=== PATIENT | female | born 1995 | race African-American/Black ===

== ENCOUNTER 2017-05-13 15:39 | Emergency (ER) | payer OTHER, MEDICAID ==
[~2017-05-13] VITALS: Ht 172.7 cm; Wt 122.5 kg
[~2017-05-13 15:39] MED LIST: ACETAMINOPHEN-1 EAC1 PO; CIPRO500 MG PO; FLAGYL500 MG PO; MACROBID 100 M100 M1 PO; MACROBID 100 M100 M2 PO; NOHOMEMEDICATIONS; ONDANSETRON HCL4 M2 PO; PYRIDIUM100 M1 PO; TRINATE TABLET1 TAB PO
[2017-05-13] MEDS ORDERED: IBUPROFEN 800800 M1 PO (17:05)
[2017-05-13 17:26] VITALS: BP 124/68
== END 2017-05-13 17:27 | disposition home or self-care (01) ==
LOC: M.ERS 15:39
DX: M25.562 Pain in left knee (principal)

== ENCOUNTER 2017-09-12 14:05 | Emergency (ER) | payer OTHER, MEDICAID ==
[~2017-09-12] VITALS: Ht 172.7 cm; Wt 90.7 kg
[~2017-09-12 14:05] MED LIST changes: +IBUPROFEN 800800 M1 PO
[2017-09-12 14:13] VITALS: BP 125/73
[2017-09-12 14:30] LABS: URINE BILIRUBIN NEGATIVE (Negative); URINE BLOOD TRACE (Negative); URINE CLARITY CLEAR; URINE COLOR YELLOW; URINE GLUCOSE-RANDOM NEGATIVE (Negative); URINE KETONES NEGATIVE (Negative); URINE LEUKOCYTES-REFLEX NEGATIVE (Negative); URINE NITRITE-REFLEX NEGATIVE (Negative); URINE PROTEIN TRACE (Negative); URINE SPECIFIC GRAVITY 1.025 (1.005-1.030); URINE UROBILINOGEN 0.2 E.U./dl (0.2-1.0)
[2017-09-12] MEDS ORDERED: MACROBID 100 M100 M3 PO (14:49)
[2017-09-12] MEDS ORDERED: KEFLEX500 M1 PO (14:49)
== END 2017-09-12 14:54 | disposition home or self-care (01) ==
LOC: M.ERS 14:05
PROVIDERS: Physician Assistant Surgical
DX: S91.112A Laceration without foreign body of left great toe without damage to nail, initial encounter (principal); S91.115A Laceration without foreign body of left lesser toe(s) without damage to nail, initial encounter; R30.0 Dysuria; X58.XXXA Exposure to other specified factors, initial encounter; Y93.89 Activity, other specified; Y92.89 Other specified places as the place of occurrence of the external cause; Y99.8 Other external cause status

== ENCOUNTER 2017-11-06 20:39 | Emergency (ER) | payer OTHER, MEDICAID ==
[~2017-11-06] VITALS: Ht 172.7 cm; Wt 122.5 kg
[~2017-11-06 20:39] MED LIST changes: +KEFLEX500 M1 PO; +MACROBID 100 M100 M3 PO
[2017-11-06 22:14] VITALS: BP 109/60
== END 2017-11-06 22:16 | disposition home or self-care (01) ==
LOC: M.ERS 20:39
DX: T78.1XXA Other adverse food reactions, not elsewhere classified, initial encounter (principal); Z88.8 Allergy status to other drugs, medicaments and biological substances; X58.XXXA Exposure to other specified factors, initial encounter

== ENCOUNTER 2017-11-18 15:36 | Emergency (ER) | payer OTHER, MEDICAID ==
[~2017-11-18] VITALS: Ht 172.7 cm; Wt 124.7 kg
[2017-11-18 15:51] LABS: URINE BILIRUBIN NEGATIVE (Negative); URINE BLOOD 1+ (Negative); URINE COLOR YELLOW; URINE GLUCOSE-RANDOM NEGATIVE (Negative); URINE KETONES NEGATIVE (Negative); URINE NITRITE-REFLEX NEGATIVE (Negative); URINE PROTEIN 1+ (Negative); URINE SPECIFIC GRAVITY 1.025 (1.005-1.030); URINE UROBILINOGEN 0.2 E.U./dl (0.2-1.0)
[2017-11-18 15:54] LABS: URINE CLARITY HAZY; URINE LEUKOCYTES-REFLEX 2+ (Negative)
[2017-11-18 16:02] LABS: SQUAMOUS >10 Many /LPF (0-3)
[2017-11-18 16:03] LABS: BACTERIA-REFLEX >30 Many /HPF (None Seen); CASTS None Seen /LPF (None Seen); CRYSTALS None Seen /LPF (None Seen); URINE RBC 3-10 Few /HPF (0-2); URINE WBC-REFLEX 6-15 Few /HPF (0-5)
[2017-11-18] MEDS ORDERED: MEDROLDOSEPACK PO (16:31)
[2017-11-18 16:39] VITALS: BP 115/71
== END 2017-11-18 16:40 | disposition home or self-care (01) ==
LOC: M.ERS 15:36
PROVIDERS: Nurse Practitioner Family
DX: N72 Inflammatory disease of cervix uteri (principal); L25.9 Unspecified contact dermatitis, unspecified cause; B00.9 Herpesviral infection, unspecified; Z88.8 Allergy status to other drugs, medicaments and biological substances

== ENCOUNTER 2017-11-18 16:55 | Emergency (ER) | payer OTHER, MEDICAID ==
[~2017-11-18] VITALS: Ht 172.7 cm; Wt 124.7 kg
[~2017-11-18 16:55] MED LIST changes: +MEDROLDOSEPACK PO
[2017-11-18 17:08] VITALS: BP 124/84
== END 2017-11-18 17:14 | disposition home or self-care (01) ==
LOC: M.ERS 16:55
DX: B00.9 Herpesviral infection, unspecified (principal); Z88.8 Allergy status to other drugs, medicaments and biological substances

== ENCOUNTER 2018-07-03 13:39 | Emergency (ER) | payer OTHER, MEDICAID ==
[~2018-07-03] VITALS: Ht 172.7 cm; Wt 127.0 kg
[2018-07-03] MEDS ORDERED: SITAVIG50 MG PO (14:14)
[2018-07-03] MEDS ORDERED: TYLENOL325 MG PO (14:14)
[2018-07-03 15:16] VITALS: BP 129/82
[2018-07-03 15:17] LABS: INFLUENZA A ANTIGEN None Detected (None Detect); INFLUENZA B ANTIGEN None Detected (None Detect)
== END 2018-07-03 15:17 | disposition home or self-care (01) ==
LOC: M.ERS 13:39
PROVIDERS: Nurse Practitioner Family
DX: J02.0 Streptococcal pharyngitis (principal); Z88.6 Allergy status to analgesic agent

== ENCOUNTER 2018-09-19 06:59 | Emergency (ER) | payer OTHER, MEDICAID ==
[~2018-09-19] VITALS: Ht 172.7 cm; Wt 129.3 kg
[~2018-09-19 06:59] MED LIST changes: +SITAVIG50 MG PO; +TYLENOL325 MG PO
[2018-09-19 07:51] LABS: ABSOLUTE EOSINOPHILS 0.1 thou/uL (0.0-0.7); ABSOLUTE LYMPHOCYTES 1.7 thou/uL (0.8-5.3); ABSOLUTE MONOCYTES 0.9 thou/uL (0.0-1.2); ABSOLUTE NEUTROPHILS 5.7 thou/uL (1.6-8.1); BASOPHILS 0.5 %; EOSINOPHILS 1.6 %; HEMATOCRIT 38.9 % (37.0-47.0); HEMOGLOBIN 13.1 gm/dL (12.0-15.0); LYMPHOCYTES 20.6 %; MCH 30.1 pg (26.0-34.0); MCHC 33.7 g/dL (28.0-37.0); MCV 89.3 fL (80.0-100.0); MONOCYTES 10.7 %; MPV 8.5 fl. (7.2-11.1); NUCLEATED RBCS 0 /100WBC; PLATELET COUNT* 315 thou/uL (150-400); POLYS 66.6 %; RBC 4.36 mil/uL (4.20-5.00); RDW-CV 13.2 % (10.5-14.5); WBC 8.5 thou/uL (4.0-11.0)
[2018-09-19 08:03] LABS: CALCIUM 8.6 mg/dL (8.5-10.1); CREATININE 0.9 mg/dL (0.6-1.3)
[2018-09-19 08:07] LABS: ALBUMIN 3.1 g/dL (3.4-5.0); TOTAL BILIRUBIN 0.2 mg/dL (<0.1-1.0); TOTAL PROTEIN 7.5 g/dL (6.4-8.2)
[2018-09-19 08:15] LABS: URINE BILIRUBIN NEGATIVE (Negative); URINE BLOOD 1+ (Negative); URINE CLARITY CLEAR; URINE COLOR YELLOW; URINE GLUCOSE-RANDOM NEGATIVE (Negative); URINE KETONES NEGATIVE (Negative); URINE LEUKOCYTES-REFLEX 1+ (Negative); URINE NITRITE-REFLEX NEGATIVE (Negative); URINE PROTEIN NEGATIVE (Negative); URINE SPECIFIC GRAVITY 1.025 (1.005-1.030); URINE UROBILINOGEN 0.2 E.U./dl (0.2-1.0)
[2018-09-19] MEDS ORDERED: TRAMADOL 50 MG50 MG PO (08:36)
[2018-09-19] MEDS ORDERED: CIPROFLOXACIN500 M1 PO (08:36)
[2018-09-19 08:40] LABS: SQUAMOUS >10 Many /LPF (0-3)
[2018-09-19 08:41] LABS: URINE WBC-REFLEX 0-5 Rare /HPF (0-5)
[2018-09-19 08:42] LABS: BACTERIA-REFLEX 1-9 Few /HPF (None Seen); CASTS None Seen /LPF (None Seen); CRYSTALS None Seen /LPF (None Seen); MUCUS None Seen strn/LPF (None Seen); URINE RBC 0-2 Rare /HPF (0-2)
[2018-09-19 08:45] VITALS: BP 141/98
== END 2018-09-19 08:46 | disposition home or self-care (01) ==
LOC: M.ERS 06:59
PROVIDERS: Family Medicine
DX: N39.0 Urinary tract infection, site not specified (principal); Z88.8 Allergy status to other drugs, medicaments and biological substances

== ENCOUNTER 2019-04-30 21:59 | Emergency (ER) | payer OTHER, MEDICAID ==
[~2019-04-30] VITALS: Ht 172.7 cm; Wt 129.3 kg
[~2019-04-30 21:59] MED LIST changes: +CIPROFLOXACIN500 M1 PO; +TRAMADOL 50 MG50 MG PO
[2019-04-30] MEDS ORDERED: VALTREX PO (22:21)
[2019-04-30 22:39] LABS: URINE BILIRUBIN NEGATIVE (Negative); URINE BLOOD TRACE (Negative); URINE CLARITY CLEAR; URINE COLOR YELLOW; URINE GLUCOSE-RANDOM NEGATIVE (Negative); URINE KETONES NEGATIVE (Negative); URINE LEUKOCYTES-REFLEX NEGATIVE (Negative); URINE NITRITE-REFLEX NEGATIVE (Negative); URINE PROTEIN 1+ (Negative); URINE SPECIFIC GRAVITY >= 1.030 (1.005-1.030)
[2019-04-30 22:49] LABS: ABSOLUTE BASOPHILS 0.1 thou/uL (0.0-0.2); ABSOLUTE EOSINOPHILS 0.1 thou/uL (0.0-0.7); ABSOLUTE LYMPHOCYTES 2.1 thou/uL (0.8-5.3); ABSOLUTE NEUTROPHILS 5.2 thou/uL (1.6-8.1); BASOPHILS 0.7 %; EOSINOPHILS 1.1 %; HEMATOCRIT 37.9 % (37.0-47.0); HEMOGLOBIN 13.1 gm/dL (12.0-15.0); LYMPHOCYTES 25.3 %; MCH 30.7 pg (26.0-34.0); MCHC 34.7 g/dL (28.0-37.0); MCV 88.5 fL (80.0-100.0); MONOCYTES 11.6 %; MPV 8.5 fl. (7.2-11.1); NUCLEATED RBCS 0 /100WBC; PLATELET COUNT* 311 thou/uL (150-400); POLYS 61.3 %; RBC 4.28 mil/uL (4.20-5.00); RDW-CV 13.1 % (10.5-14.5); WBC 8.5 thou/uL (4.0-11.0)
[2019-04-30 23:01] LABS: CALCIUM 8.4 mg/dL (8.5-10.1); CREATININE 0.9 mg/dL (0.6-1.3); POTASSIUM 3.7 mmol/L (3.5-5.1)
[2019-04-30 23:11] LABS: ALBUMIN 3.1 g/dL (3.4-5.0); TOTAL BILIRUBIN 0.3 mg/dL (<0.1-1.0); TOTAL PROTEIN 7.7 g/dL (6.4-8.2)
[2019-04-30] MEDS ORDERED: HYDROCODON-ACE1 EAC8 PO (23:50)
[2019-04-30] MEDS ORDERED: ZOFRAN ODT4 MG PO (23:50)
[2019-05-01 00:14] VITALS: BP 118/79
== END 2019-05-01 00:18 | disposition home or self-care (01) ==
LOC: M.ERS 21:59
PROVIDERS: Emergency Medicine
DX: R11.2 Nausea with vomiting, unspecified (principal); R19.7 Diarrhea, unspecified; R10.13 Epigastric pain; Z88.6 Allergy status to analgesic agent

== ENCOUNTER 2019-10-16 18:46 | Emergency (ER) | payer OTHER, MEDICAID ==
[~2019-10-16] VITALS: Ht 172.7 cm; Wt 128.8 kg
[~2019-10-16 18:46] MED LIST changes: +HYDROCODON-ACE1 EAC8 PO; +VALTREX PO; +ZOFRAN ODT4 MG PO
[2019-10-16 18:58] VITALS: BP 132/97
[2019-10-16] MEDS ORDERED: CIPROFLOXIN HC2.5 M1 OTIC (19:22)
[2019-10-16] MEDS ORDERED: TYLENOL WITH CO1 TA1 PO (19:22)
[2019-10-16] MEDS ORDERED: KEFLEX500 M1 PO (19:25)
== END 2019-10-16 19:32 | disposition home or self-care (01) ==
LOC: M.ERS 18:46
DX: H66.91 Otitis media, unspecified, right ear (principal); H60.91 Unspecified otitis externa, right ear; Z88.6 Allergy status to analgesic agent